=== PATIENT | female | born 1970 | race Caucasian/White ===

== ENCOUNTER 2021-08-07 19:55 | Emergency (ER) | payer MEDICAID ==
[~2021-08-07] VITALS: Ht 317.5 cm; Wt 82.5 kg
[2021-08-07] MEDS ORDERED: ACETAMINOPHEN 325MG TABLET PO ONE (21:30)
[2021-08-07] MEDS ORDERED: LIDOCAINE 5% PATCH TOP SCH (21:30)
[2021-08-08] MEDS ORDERED: BACL-141 MT (02:08)
[2021-08-08] MEDS ORDERED: ACET-2708 MT (02:08)
[2021-08-08] MEDS ORDERED: LIDO700A15 TP (02:08)
[2021-08-08 02:30] VITALS: BP 145/82
== END 2021-08-08 02:30 | disposition home or self-care (01) ==
LOC: ER 19:55
DX: S13.4XXA Sprain of ligaments of cervical spine, initial encounter (principal); I10 Essential (primary) hypertension; V43.62XA Car passenger injured in collision with other type car in traffic accident, initial encounter; Y93.89 Activity, other specified; Y92.410 Unspecified street and highway as the place of occurrence of the external cause; Z88.6 Allergy status to analgesic agent; Z90.49 Acquired absence of other specified parts of digestive tract; Z98.51 Tubal ligation status; Z98.890 Other specified postprocedural states
CPT/HCPCS: 81025; 99284